=== PATIENT | male | born 2005 | race Caucasian/White ===

== ENCOUNTER 2023-08-05 20:11 | Emergency (ER) | payer MEDICAID, OTHER ==
[~2023-08-05] VITALS: Ht 175.3 cm; Wt 59.2 kg
[~2023-08-05 20:11] MED LIST: [UNRECOGNIZED DRUG - CODE] PO
[2023-08-05 20:21] VITALS: BP 104/62; PULSE 72; RESP 16; TEMP 98; O2SAT 97
[2023-08-05] MEDS ORDERED: ketorolac trometh inj. 60 MG/2 ML VIAL IM ONE (22:05)
[2023-08-05] MEDS ORDERED: diazepam inj 5 MG/ML inj. IM ONE (22:05)
[2023-08-05] MEDS ORDERED: CYCL-1 PO (22:10)
[2023-08-05] MEDS ORDERED: NAPR-56 PO (22:10)
== END 2023-08-05 23:15 | disposition home or self-care (01) ==
LOC: ER 20:12
DX: S46.911A Strain of unspecified muscle, fascia and tendon at shoulder and upper arm level, right arm, initial encounter (principal); X58.XXXA Exposure to other specified factors, initial encounter; Y93.89 Activity, other specified; Y92.89 Other specified places as the place of occurrence of the external cause; Y99.8 Other external cause status
CPT/HCPCS: 96372; 99284; J1885; J3360